=== PATIENT | female | born 1985 | race Two or more races ===

== ENCOUNTER 2018-04-15 10:23 | Outpatient (CLI) | payer SELFPAY | END 2018-04-15 12:30 | disposition home or self-care (01) | LOC: OBT 10:23 → L-D 10:24 → OBT 12:30 | DX: O62.9 Abnormality of forces of labor, unspecified (principal); O09.523 Supervision of elderly multigravida, third trimester; Z3A.39 39 weeks gestation of pregnancy | CPT/HCPCS: 76818 ==

== ENCOUNTER 2018-04-15 23:52 | Inpatient (IN) | payer SELFPAY ==
[2018-04-16] MEDS ORDERED: METHYLERGONOVINE 0.2 MG INJ IM ×2 (00:30→03:00)
[2018-04-16] MEDS ORDERED: BUTORPHANOL 2 MG INJ IV (00:30)
[2018-04-16] MEDS ORDERED: OXYTOCIN 30 UNITS/LR 500 ML IV ×2 (00:30→03:00)
[2018-04-16] MEDS ORDERED: CARBOPROST 250 MCG INJ IM ×2 (00:30→03:00)
[2018-04-16] MEDS ORDERED: LIDOCAINE 1% (MPF) 30 ML INJ INJ (00:30)
[2018-04-16] MEDS ORDERED: IBUPROFEN 600 MG TAB PO (00:30)
[2018-04-16] MEDS: LACTATED RINGER'S 1,000 ML IV ×2 (00:41)
[2018-04-16 00:48] LABS: ADD MAN DIFF? NO
[2018-04-16 00:52] LABS: WHITE BLOOD COUNT 14.5 10^3/ul (4.8-10.8)
[2018-04-16 00:52] LABS: BASOPHIL # 0.1 10^3/ul (0.0-0.1); BASOPHILS % 0.6 % (0.0-2.0); EOSINOPHILS # 0.3 10^3/ul (0.0-0.5); EOSINOPHILS % 2.1 % (0.0-7.0); HEMATOCRIT 35.4 % (37.0-47.0); HEMOGLOBIN 12.5 g/dl (12.0-16.0); LYMPHOCYTES # 2.9 10^3/ul (0.8-2.9); MEAN CORPUSCULAR HEMOGLOBIN 31.6 pg (29.0-33.0); MEAN CORPUSCULAR HGB CONC 35.3 g/dl (32.0-37.0); MEAN CORPUSCULAR VOLUME 89.6 fl (82.0-101.0); MEAN PLATELET VOLUME 10.3 fl (7.4-10.4); MONOCYTES % 6.9 % (0.0-11.0); NEUTROPHILS % 69.3 % (39.0-77.0); PLATELET COUNT 271 10^3/UL (140-415); RED BLOOD COUNT 3.95 10^6/ul (4.20-5.40); RED CELL DISTRIBUTION WIDTH 13.3 % (11.5-14.5)
[2018-04-16] MEDS ORDERED: NALOXONE (0.4 MG/ML) INJ IV (01:00)
[2018-04-16] MEDS ORDERED: EPHEDrine SULFATE 50 MG/5 ML SYG IV (01:00)
[2018-04-16] MEDS ORDERED: ONDANSETRON 4 MG INJ IV ×2 (01:00→03:00)
[2018-04-16] MEDS ORDERED: MINERAL OIL LIGHT 10 ML VIAL TOP (01:00)
[2018-04-16] MEDS ORDERED: DIPHENHYDRAMINE 50 MG INJ IV ×2 (01:00→03:00)
[2018-04-16 01:08] LABS: INR 0.87; PROTIME 11.9 Sec (11.9-14.9); PT RATIO 0.9
[2018-04-16] MEDS ORDERED: FENTAnyl 2MCG/ML-ROPIV 0.2% 100 ML (01:08)
[2018-04-16 01:09] LABS: PARTIAL THROMBOPLASTIN TIME 26.5 Sec (25.0-35.0)
[2018-04-16] MEDS: OXYTOCIN 30 UNITS/LR 500 ML IV ×2 (01:36→03:25)
[2018-04-16 01:56] LABS: HEPATITIS B SURFACE ANTIBODY NEGATIVE (NEGATIVE)
[2018-04-16] MEDS ORDERED: FENTAnyl 50 MCG/ML VIAL (02:11)
[2018-04-16] MEDS: FENTAnyl 2MCG/ML-ROPIV 0.2% 100 ML BAG EPI (02:17)
[2018-04-16] MEDS: FENTAnyl 50 MCG/ML VIAL IV (02:18)
[2018-04-16] MEDS ORDERED: CEFAZOLIN 2 GM/50 ML (PMX) 50 ML IVPB (02:22)
[2018-04-16] MEDS: CEFAZOLIN 2 GM/50 ML (PMX) 50 ML IVPB ×3 (02:24→17:42)
[2018-04-16] MEDS: MISOPROSTOL 200 MCG TAB PR (02:24)
[2018-04-16] MEDS ORDERED: DEXTROSE 5%-LR 1,000 ML IV (02:58)
[2018-04-16] MEDS ORDERED: ZOLPIDEM 5 MG TAB PO (03:00)
[2018-04-16] MEDS ORDERED: MISOPROSTOL 200 MCG TAB PR (03:00)
[2018-04-16] MEDS ORDERED: OXYCODONE/ASPIRIN (4.88/325) TAB PO (03:00)
[2018-04-16] MEDS ORDERED: DIBUCAINE 1% 30 GM OINT PR (03:00)
[2018-04-16] MEDS: ACETAMINOPHEN 325 MG TAB PO (03:50)
[2018-04-16] MEDS: WITCH HAZEL/GLYCERIN PAD PR (05:38)
[2018-04-16] MEDS: IBUPROFEN 600 MG TAB PO ×3 (05:38→17:42)
[2018-04-16] MEDS: BENZOCAINE 20% 56 ML SPRAY TOP (05:38)
[2018-04-16] MEDS: LANOLIN 7 GM TUBE TOP (05:38)
[2018-04-16] MEDS: LACTATED RINGER'S 1,000 ML IV* ×3 (06:54→17:42)
[2018-04-16] MEDS: SENNA/DOCUSATE NA (8.6MG/50MG) TAB PO (09:40)
[2018-04-16 15:08] LABS: RAPID PLASMA REAGIN NONREACTIVE (NR)
[2018-04-17] MEDS: IBUPROFEN 600 MG TAB PO ×3 (00:09→12:56)
[2018-04-17 08:51] LABS: ADD MAN DIFF? NO
[2018-04-17 09:05] LABS: BASOPHIL # 0.1 10^3/ul (0.0-0.1); BASOPHILS % 0.8 % (0.0-2.0); EOSINOPHILS # 0.3 10^3/ul (0.0-0.5); EOSINOPHILS % 2.5 % (0.0-7.0); HEMATOCRIT 33.8 % (37.0-47.0); HEMOGLOBIN 11.4 g/dl (12.0-16.0); LYMPHOCYTES % 24.8 % (15.0-51.0); MEAN CORPUSCULAR HEMOGLOBIN 30.9 pg (29.0-33.0); MEAN CORPUSCULAR HGB CONC 33.7 g/dl (32.0-37.0); MEAN CORPUSCULAR VOLUME 91.6 fl (82.0-101.0); MEAN PLATELET VOLUME 10.2 fl (7.4-10.4); MONOCYTE # 0.8 10^3/ul (0.3-0.9); MONOCYTES % 6.5 % (0.0-11.0); NEUTROPHIL # 7.8 10^3/ul (1.6-7.5); NEUTROPHILS % 64.2 % (39.0-77.0); PLATELET COUNT 266 10^3/UL (140-415); RED BLOOD COUNT 3.69 10^6/ul (4.20-5.40); RED CELL DISTRIBUTION WIDTH 13.7 % (11.5-14.5)
[2018-04-17 09:05] LABS: WHITE BLOOD COUNT 12.1 10^3/ul (4.8-10.8)
[2018-04-18] MEDS ORDERED: MEASLES,MUMPS,RUBELLA VACCINE INJ SC* (09:00)
[2018-04-18] MEDS ORDERED: DIPHTH/TET/ACEL PERTUSS (ADULT) 0.5 ML VIAL IM* (09:00)
== END 2018-04-17 15:30 | disposition home or self-care (01) | DRG 767 ==
LOC: OBT 04-16 00:06 → L-D 04-16 00:07 → PP1 04-16 04:54
PROVIDERS: Specialist
PROC: 10E0XZZ Delivery of Products of Conception, External Approach (ICD-10-PCS; principal; 2018-04-16)
PROC: 10D17Z9 Manual Extraction of Products of Conception, Retained, Via Natural or Artificial Opening (ICD-10-PCS; 2018-04-16)
PROC: 0KQM0ZZ Repair Perineum Muscle, Open Approach (ICD-10-PCS; 2018-04-16)
PROC: 4A1HXCZ Monitoring of Products of Conception, Cardiac Rate, External Approach (ICD-10-PCS; 2018-04-16)
DX: O70.1 Second degree perineal laceration during delivery (principal); Z37.0 Single live birth; O69.81X0 Labor and delivery complicated by cord around neck, without compression, not applicable or unspecified; O73.0 Retained placenta without hemorrhage; Z3A.39 39 weeks gestation of pregnancy
CPT/HCPCS: 62319; 85025; 85610; 85730; 86592; 86706; 86850; 86900; 86901; 87040; 87086; 88307